=== PATIENT | female | born 1965 | race Caucasian/White ===

== ENCOUNTER → 2017-02-07 | Outpatient (CLI) | payer MEDICARE, OTHER ==
--- NOTE | 2017-02-07 12:21 | RAD ---
INDICATION: Chronic neck pain and stiffness. TECHNIQUE: Sagittal T1, sagittal T2, sagittal STIR, axial T2, and axial T2 gradient sequences are provided. No comparison is available. FINDINGS: There is no malalignment. There is no marrow edema. There is no worrisome marrow lesion. There is no cord signal abnormality. Cervicomedullary junction is unremarkable. Degenerative findings by individual level are as follows: C2-C3: There is no canal or foraminal compromise. There is minimal facet hypertrophy. C3-C4: There is no canal or foraminal compromise. C4-C5: There is no canal or foraminal compromise. C5-C6: There is a minimal disc bulge and buckling of ligamentum flavum without canal or foraminal compromise. C6-C7: There is minimal uncinate process spurring without canal or foraminal compromise. C7-T1: There is no canal or foraminal compromise. IMPRESSION: Minimal degenerative disc disease and uncinate process spurring in the cervical spine without any high-grade canal or foraminal compromise. Electronically signed by: Pee Lawrence MD (02/07/2017 12:18 PM) [id number]
== END | disposition home or self-care (01) ==
LOC: MRI 11:05
PROVIDERS: ATTEND General Practice
DX: M50.323 Other cervical disc degeneration at C6-C7 level (principal); M50.322 Other cervical disc degeneration at C5-C6 level
CPT/HCPCS: 72141

== ENCOUNTER → 2017-08-25 | Outpatient (CLI) | payer MEDICARE, OTHER | END | disposition home or self-care (01) | LOC: ECHO 14:14 | DX: I20.0 Unstable angina (principal) | CPT/HCPCS: 93306 ==

== ENCOUNTER → 2018-11-14 | Outpatient (CLI) | payer MEDICARE, OTHER ==
[2018-01-09 14:45] VITALS: BP 166/84
[~2018-11-14] MED LIST: ASPI-630 PO; BUTA1CAP57 PO; CETI10TA22 PO; CLON0.25 SL; CLON0.5T11 PO; DULO30CA2 PO; ESTR1TAB15 PO; ESTR2TAB PO; FAMO20TA5 PO; FENO150C3 PO; FURO20TA3 PO; IBUP-1007 PO; LAMO25TA5 PO; LISI-334 PO; MELO7.5T29 PO; METF500T16 PO; ONDA8TAB9 PO; PANT20TA2 PO; PRAZ2CAP2 PO; PRAZ5CAP2 PO; PREG150C PO; PROP20TA PO; ROPI0.5T2 PO; SIMV10TA3 PO; TRAZ-86 PO; VENTOLIN HFA18 GM INH
--- NOTE | 2018-11-14 16:05 | CARD ---
MR#: [id number] Date of Study: 11/14/2018 Ordering Physician: ALAN DIOP, Referring Physician: ALAN DIOP, Tech: Yaquelin King APPROVED REPORT EXAM: Two-dimensional and M-mode echocardiogram with Doppler and color Doppler. Other Information Quality : AverageHR: 67bpm INDICATION Mitral Valve Disease RISK FACTORS Hypertension Hyperlipidemia Diabetes Smoking Previous stoke 2D DIMENSIONS RVDd2.6 (2.9-3.5cm)Left Atrium(2D)3.9 (1.6-4.0cm) IVSd1.1 (0.7-1.1cm)Aortic Root(2D)2.7 (2.0-3.7cm) LVDd5.0 (3.9-5.9cm)LVOT Diameter2.0 (1.8-2.4cm) PWd1.3 (0.7-1.1cm)LVDs2.9 (2.5-4.0cm) FS (%) 42.3 %SV85.3 ml Aortic Valve AoV Peak Patel.155.2cm/sAoV VTI35.1cm AO Peak GR.9.6mmHgLVOT Peak Patel.134.7cm/s LVOT VTI 29.87cmAO Mean GR.5mmHg OSBALDO (VMAX)1.48ia2FUO (VTI)2.58cm2 Mitral Valve MV E Jsvnwnwj279.5cm/sMV E Peak Gr.138mmHg MV DECEL [id number] A Vtaarmgc856.1cm/s MV E Mean Gr.7mmHgMV OPF03uj E/A Ratio1.0MVA (PHT)2.29cm2 TDI E/Lateral E'25.7E/Medial E'23.4 Pulmonary Valve PV Peak Ogqkdvhm622.5cm/sPV Peak Grad.5mmHg Tricuspid Valve TR P. Inojdpwc670zs/sRAP WEDQJIFJ87arZl TR Peak Gr.83itTeGLKS55euQr Pulmonary Vein S1 Djcoynzu96.5cm/sD2 Ciqcgwpk69.1cm/s PVa lezjxxci136frqg LEFT VENTRICLE The left ventricle is normal size. There is mild concentric left ventricular hypertrophy. The left ve ntricular systolic function is normal and the ejection fraction is within normal range. The Ejection Fraction is 55-60%. There is normal LV segmental wall motion. Transmitral Doppler flow pattern is Gra de II-pseudonormal filling dynamics. RIGHT VENTRICLE The right ventricle is normal size. There is normal right ventricular wall thickness. The right ventr icular systolic function is normal. ATRIA The left atrium is mildly dilated. The right atrium size is normal. The interatrial septum is intact with no evidence for an atrial septal defect or patent foramen ovale as noted on 2-D or Doppler imagi ng. AORTIC VALVE The aortic valve is not well visualized. Doppler and Color Flow revealed trace aortic regurgitation. There is no significant aortic valvular stenosis. MITRAL VALVE The mitral valve is thickened but opens well. There is no evidence of mitral valve prolapse. There is no mitral valve stenosis. Doppler and Color-flow revealed mild mitral regurgitation. TRICUSPID VALVE The tricuspid valve is normal in structure and function. Doppler and Color Flow revealed trace to mil d tricuspid regurgitation with an estimated PAP of 36 mmHg. There is no tricuspid valve stenosis. PULMONIC VALVE The pulmonic valve is not well visualized. Doppler and Color Flow revealed trace pulmonic valvular re gurgitation. GREAT VESSELS The aortic root is normal in size. The IVC is dilated and collapses >50% with inspiration. PERICARDIAL EFFUSION There is no evidence of significant pericardial effusion. Critical Notification Critical Value: No <Conclusion> The left ventricle is normal size. The left ventricular systolic function is normal and the ejection fraction is within normal range. The Ejection Fraction is 55-60%. There is mild concentric left ventricular hypertrophy. There is no significant aortic valvular stenosis. Doppler and Color Flow revealed trace aortic regurgitation. The mitral valve is thickened but opens well. Doppler and Color-flow revealed mild mitral regurgitation. Doppler and Color Flow revealed trace to mild tricuspid regurgitation with an estimated PAP of 36 mmH g. Signed by : Tucker Nails MD Electronically Approved : 11/14/2018 16:04:28
== END | disposition home or self-care (01) ==
LOC: ECHO 10:08
PROVIDERS: ATTEND Internal Medicine Cardiovascular Disease
DX: I08.1 Rheumatic disorders of both mitral and tricuspid valves (principal); I11.9 Hypertensive heart disease without heart failure; E78.5 Hyperlipidemia, unspecified; E11.9 Type 2 diabetes mellitus without complications; F17.200 Nicotine dependence, unspecified, uncomplicated
CPT/HCPCS: 93306

== ENCOUNTER → 2020-05-06 | Outpatient (CLI) | payer MEDICARE, OTHER ==
[2019-08-31 15:00] VITALS: BP 105/61
[~2020-05-06] MED LIST changes: +ACET325T9 PO; +ALBU2.5V14 NEB; +CALC200T23 PO; -CETI10TA22 PO; +CETI10TA74 PO; +CLON-77 PO; -CLON0.5T11 PO; +DICY10CA3 PO; +DOCU-153 PO; +ESTR-113 PO; -ESTR1TAB15 PO; +FURO40TA4 PO; +GUAI100L12 PO; +IRON150C11 PO; +LACT1CAP19 PO; +Lido:Maalox 1:1 PO; +METO25TA4 PO; +NORT25CA PO; +PANT40TA77 PO; +POTA-163 PO; -ROPI0.5T2 PO; +ROPI0.5T4 PO; +SIMV10TA15 PO; -SIMV10TA3 PO; +TOPI100C5 PO; +TOPI200C5 PO; +TRAZ-123 PO; -TRAZ-86 PO; +TRIA1CAP3 PO
--- NOTE | 2020-05-06 11:50 | CARD ---
MR#: [id number] Date of Study: 05/06/2020 Ordering Physician: ALAN DIOP, Referring Physician: ALAN DIOP, Tech: APPROVED REPORT Indication: Syncope Procedure Details: After appropriate informed consent the patient was brought to the procedure suite. The left chest wa s prepped and draped in usual sterile fashion. 20 mL of lidocaine was instilled in the left paraster nal space along the fourth and fifth ribs. Next, a 0.5 inch incision was made using a scalpel and us ing the prespecified tunneling tool the loop recorder was placed in the subcutaneous tissue. No acut e complications were noted. [employer] reveal LINQ with serial number [id number]. Appropriate amplitudes were noted. No acute complications noted <Conclusion> 1. Successful placement of a [employer] loop recorder for recurrent syncope. Signed by : Alan Diop, Electronically Approved : 05/06/2020 11:49:27
== END | disposition home or self-care (01) ==
LOC: LINQ 10:55
PROVIDERS: ATTEND Internal Medicine Cardiovascular Disease
DX: R55 Syncope and collapse (principal); I10 Essential (primary) hypertension; E78.00 Pure hypercholesterolemia, unspecified; J44.9 Chronic obstructive pulmonary disease, unspecified; G47.30 Sleep apnea, unspecified; M19.90 Unspecified osteoarthritis, unspecified site; Z90.710 Acquired absence of both cervix and uterus; Z90.49 Acquired absence of other specified parts of digestive tract; Z98.890 Other specified postprocedural states; Z79.899 Other long term (current) drug therapy; Z87.891 Personal history of nicotine dependence; Z79.82 Long term (current) use of aspirin; Z88.1 Allergy status to other antibiotic agents; Z88.6 Allergy status to analgesic agent; Z88.8 Allergy status to other drugs, medicaments and biological substances
CPT/HCPCS: 33285; C1764

== ENCOUNTER → 2020-09-11 | Outpatient (CLI) | payer MEDICARE, OTHER ==
[2020-05-29 11:00] VITALS: BP 144/54
[~2020-09-11] MED LIST changes: +ASPI-886 PO; +CETI10TA16 PO; +DULO60CA6 PO; +ISOS30TA68 PO; -LISI-334 PO; +LISI20TA18 PO; +METF-658 PO; +PERFLUTREN PROTEIN-A MICROSPHR 0.22 MG/ML 3 ML VIAL. IV ONE; +PRAZ1CAP2 PO; +VARE1TAB21 PO
--- NOTE | 2020-09-11 16:09 | CARD ---
MR#: [id number] Date of Study: 09/11/2020 Ordering Physician: ALAN DIOP, Referring Physician: ALAN DIOP, Tech: Brittany Perez [facility] APPROVED REPORT EXAM: Two-dimensional and M-mode echocardiogram with Doppler and color Doppler. Other Information Quality : Technically LimitedHR: 93bpm Rhythm : NSRTechnically limited study due to body habitus. INDICATION COPD Dyspnea Mitral Valve Disease Echo Enhancing Agent Indication: Endocardial border delineation Agent/Amount Used: Optison 2mL RISK FACTORS Hypertension Obesity Hyperlipidemia Diabetes 2D DIMENSIONS RVDd3.7 (2.9-3.5cm)Left Atrium(2D)4.1 (1.6-4.0cm) IVSd1.0 (0.7-1.1cm)Aortic Root(2D)2.5 (2.0-3.7cm) LVDd4.2 (3.9-5.9cm)LVOT Diameter2.2 (1.8-2.4cm) PWd1.1 (0.7-1.1cm)LVDs2.2 (2.5-4.0cm) FS (%) 47.8 %SV62.4 ml LVEF(%)79.5 (>50%) Aortic Valve AoV Peak Patel.160.3cm/sAoV VTI32.7cm AO Peak GR.10.3mmHgLVOT Peak Patel.162.7cm/s AO Mean GR.5mmHgAVA (VMAX)3.70cm2 Mitral Valve MV E Oiktnvzl524.1cm/sMV E Peak Gr.18mmHg MV DECEL [id number] A Gmatgkjg031.3cm/s MV E Mean Gr.12mmHgE/A Ratio1.3 Pulmonary Valve PV Peak Ohzlaojm992.0cm/s LEFT VENTRICLE The left ventricle is normal size. There is mild to moderate concentric left ventricular hypertrophy. The left ventricular systolic function is normal and the ejection fraction is within normal range. E stimated ejection fraction 60-65%. There is normal LV segmental wall motion. Tissue Doppler imaging r eveals moderate left ventricular diastolic dysfunction. RIGHT VENTRICLE The right ventricle is normal size. There is normal right ventricular wall thickness. The right ventr icular systolic function is normal. ATRIA The left atrium is mildly dilated. The right atrium size is normal. The interatrial septum is intact with no evidence for an atrial septal defect or patent foramen ovale as noted on 2-D or Doppler imagi ng. AORTIC VALVE The aortic valve is normal in structure and function. Doppler and Color Flow revealed no significant aortic regurgitation. There is no significant aortic valvular stenosis. MITRAL VALVE The mitral valve is calcified and displays decreased opening. Overall appearance suggestive of rheuma tic valve disease. There is no evidence of mitral valve prolapse. There is moderate mitral valve sten osis. MG 10 mm Hg. Doppler and Color-flow revealed trace mitral regurgitation. TRICUSPID VALVE The tricuspid valve is normal in structure and function. Doppler and Color Flow revealed no tricuspid valve regurgitation noted. There is no tricuspid valve stenosis. PULMONIC VALVE Doppler and Color Flow revealed no pulmonic valvular regurgitation. There is no pulmonic valvular navjot nosis. GREAT VESSELS The aortic root is normal in size. The ascending aorta is normal in size. The IVC is normal in size a nd collapses >50% with inspiration. PERICARDIAL EFFUSION There is no evidence of significant pericardial effusion. Critical Notification Critical Value: No <Conclusion> The left ventricular systolic function is normal and the ejection fraction is within normal range. E stimated ejection fraction 60-65%. There is normal LV segmental wall motion. There is mild to moderate concentric left ventricular hypertrophy. The mitral valve is calcified and displays decreased opening. Overall appearance suggestive of rheuma tic valve disease. There is moderate mitral valve stenosis. MG 10 mm Hg. Signed by : Alan Diop, Electronically Approved : 09/11/2020 16:08:44
== END ==
LOC: ECHO 14:34
PROVIDERS: ATTEND Internal Medicine Cardiovascular Disease
DX: I05.0 Rheumatic mitral stenosis (principal); I50.30 Unspecified diastolic (congestive) heart failure
CPT/HCPCS: 93306; Q9956